=== PATIENT | female | born 1980 | race Caucasian/White ===

== ENCOUNTER 2017-11-09 18:39 | Emergency (ER) | payer OTHER ==
[2017-11-09 18:45] VITALS: O2SAT 98
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
[2017-11-09 20:25] VITALS: BP 122/78; PULSE 81; RESP 16; TEMP 98.6
== END 2017-11-09 20:00 | disposition home or self-care (01) ==
DX: S83.92XA Sprain of unspecified site of left knee, initial encounter (principal); S63.602A Unspecified sprain of left thumb, initial encounter; V13.4XXA Pedal cycle driver injured in collision with car, pick-up truck or van in traffic accident, initial encounter; Y92.410 Unspecified street and highway as the place of occurrence of the external cause; Y99.8 Other external cause status; Y93.55 Activity, bike riding